=== PATIENT | female | born 1985 | race Caucasian/White ===

== ENCOUNTER 2018-11-30 16:00 | Emergency (ER) | payer MEDICAID, OTHER, SELFPAY ==
[~2018-11-30] VITALS: Ht 160 cm; Wt 81.9 kg
[2018-11-30 16:19] LABS: BASOPHILS # (AUTO) 0.09 x10^3/uL (0-0.1); BASOPHILS % (AUTO) 1 % (0-1); EOSINOPHILS # (AUTO) 0.06 x10^3/uL (0-0.4); EOSINOPHILS % (AUTO) 1 % (1-7); LYMPHOCYTES # (AUTO) 1.65 x10^3/uL (1-3.4); LYMPHOCYTES % (AUTO) 24 % (22-44); MD NO; MEAN CORPUSCULAR HEMOGLOBIN 34.4 pg (27.0-34.8); MEAN CORPUSCULAR HGB CONC 33.4 g/dL (32.4-35.8); MEAN CORPUSCULAR VOLUME 102.9 fL (80-100); MEAN PLATELET VOLUME 7.7 fL (7.4-10.4); MONOCYTES # (AUTO) 0.63 x10^3/uL (0.2-0.8); MONOCYTES % (AUTO) 9 % (2-9); NEUTROPHILS # (AUTO) 4.61 x10^3/uL (1.8-6.8); NEUTROPHILS % (AUTO) 66 % (42-75); PLATELET COUNT 316 x10^3/uL (130-400); RED BLOOD COUNT 4.76 x10^6/uL (3.82-5.3); RED CELL DISTRIBUTION WIDTH 14.3 % (9.6-15.2)
--- NOTE | 2018-11-30 16:20 | NUR ---
PT TO ROOM BREIFLY FROM TRIAGE. CHANGED INTO GOWN AND TAKEN TO US WITH TECH TRANSPORT
[2018-11-30] MEDS ORDERED: ACETAMINOPHEN 325 MG TABLET PO ONE (16:30)
[2018-11-30 16:31] LABS: ALBUMIN 3.9 g/dL (3.4-5.0); ANION GAP 8 mmol/L (5-15); CALCIUM 8.9 mg/dL (8.5-10.1); CHLORIDE 106 mmol/L (98-107); CREATININE 0.65 mg/dL (0.55-1.02)
[2018-11-30] MEDS ORDERED: ACETAMINOPHEN 325 MG TABLET ONE (16:35)
--- NOTE | 2018-11-30 16:55 | NUR ---
PT RTD FROM US, PIV EST AND PT MED FOR ABD PAIN 02/11. VSS
--- NOTE | 2018-11-30 17:00 | NUR ---
report received from XAVIER Platt at bedside, pt to CT at this time.
[2018-11-30] MEDS ORDERED: OMNIPAQUE 350 MG/ML, 100ML BOTTLE ONE (17:22)
[2018-11-30 17:27] LABS: CULTURE INDICATED? NO; MICROSCOPIC NOT IND
--- NOTE | 2018-11-30 17:28 | NUR ---
PT BACK FROM CT. PT A&O, RESPS EVEN AND UNLABORED, AMIE. URINE COLLECTED AND SENT TO LAB.
[2018-11-30 17:43] VITALS: BP 152/107
--- NOTE | 2018-11-30 17:45 | NUR ---
all results back, chart up for recheck, awaiting MD and dispo at this time.
--- NOTE | 2018-11-30 19:00 | NUR ---
THIS RN WENT TO DISCHARGE PT. PT NOT FOUND IN ROOM, NO CLOTHES OR BELONGINGS IN ROOM. GOWN LEFT ON BED. ROOM AND TRASH SEARCHED FOR PIV, NOT FOUND. PT LEFT BEFORE RECEIVING DISCHARGE INSTRUCTIONS, PT LEFT BEFORE RN DC'D PIV. THIS RN ATTEMPTED TO CALL PT'S HOME NUMBER, PHONE RANG WITH NO ANSWER. [facility] CALLED, REPORT FILED IT APPEARS THAT PT LEFT WITH PIV IN PLACE.
== END 2018-11-30 19:06 | disposition home or self-care (01) ==
LOC: ED 16:55
DX: R10.31 Right lower quadrant pain (principal); R10.32 Left lower quadrant pain
CPT/HCPCS: 36415; 74177; 76830; 80048; 81003; 82040; 84703; 85025; 99284; Q9967